=== PATIENT | female | born 1965 | race Caucasian/White ===

== ENCOUNTER 2018-10-24 07:38 | Emergency (ER) | payer BC ==
[~2018-10-24] VITALS: Ht 157.5 cm; Wt 73.0 kg
[2018-10-24 07:48] VITALS: Ht 157.5 cm; Wt 73.0 kg
[2018-10-24 11:46] VITALS: BP 126/76
== END 2018-10-24 11:46 | disposition home or self-care (01) ==
LOC: ED 07:38
DX: S20.212A Contusion of left front wall of thorax, initial encounter (principal); I10 Essential (primary) hypertension; V48.5XXA Car driver injured in noncollision transport accident in traffic accident, initial encounter; Y93.I9 Activity, other involving external motion; Y92.488 Other paved roadways as the place of occurrence of the external cause; Y99.8 Other external cause status
CPT/HCPCS: J7050